=== PATIENT | female | born 1950 | race Caucasian/White ===

== ENCOUNTER → 2024-07-14 08:27 | Outpatient (REF) | payer MEDICARE, SELFPAY | LOC: RAD 08:27 | PROVIDERS: ATTENDING PHYSICIAN Nurse Practitioner Family | DX: M81.0 Age-related osteoporosis without current pathological fracture (principal) | CPT/HCPCS: 77080 ==

== ENCOUNTER → 2025-01-16 11:13 | Outpatient (REF) | payer MEDICARE, SELFPAY | LOC: RAD 11:13 | PROVIDERS: ATTENDING PHYSICIAN Orthopaedic Surgery | DX: M79.662 Pain in left lower leg (principal) | CPT/HCPCS: 93971 ==